=== PATIENT | female | born 1995 | race Caucasian/White ===

== ENCOUNTER 2019-03-17 10:59 | Inpatient (IN) ==
[~2019-03-17 10:59] MED LIST: Famotidine 20 MG/2 ML VIAL IVP PRN; Metoclopramide 10 MG/2 ML VIAL IVP PRN; Naloxone 0.4 MG/ML INJ IVP PRN; Ondansetron 4 MG/2 ML VIAL IVP PRN
[2019-03-17] MEDS ORDERED: Ringers Solution, Lactated 1,000 ML IVC SCH (11:00)
--- NOTE | 2019-03-17 11:04 | OB/GYN History & Physical ---
Date of Encounter: 03/17/19 Time of Encounter: 11:01 Assessment and Plan (1) 37 weeks gestation of Current visit: Yes Status: Acute admit at this time Dr. Mistry aware of patients assessment and POC (2) Spontaneous rupture of membranes Current visit: Yes Status: Acute awaiting records NPO History of Present Illness Chief complaint: Leaking fluid HPI: Ms. Wan is a 24 year old female at 37w3d presents to labor and delivery with complaints of leaking fluid through the night and a gush of fluid this morning. Patient denies any vaginal bleeding or contractions. Patient reports good movement. Patient receives care in [place]. We are currently waiting on records. Patient reports she is to have a "primary c/s at [facility] due to cysts on the baby's brain". Past Med Surg Social Fam HX - Past Medical History Source: patient Medical history: no medical history - Past Surgical History Additional surgical history: T&A - Social History Smoking Status: Never smoker Smokeless Tobacco Status: No Alcohol use: none Current living situation: Home - Independent Activity Level: Independent ambulation Recent Out of Country Travel Within the Last 8 Weeks: No Exposure or Possible Exposure to Illness During Travel: No Obstetrical History - Pregnancies : 1 Para: 0 Term: 0 : 0 Ab's: 0 Livin Medications and Allergies Guaifenesin [Mucinex] 600 mg PO BID #20 tab.er.12h 10/19/18 [Rx] RX: Acetaminophen [Pain Reliever] 1,000 mg PO TID PRN #100 tablet 10/19/18 [Rx] RX: Cromolyn Sodium Nasal [place] [NasalCrom] 1 spray NS TID #1 spray.pump 10/19/18 [Rx] Allergy/AdvReac Type Severity Reaction Status Date / Time No Known Allergies Allergy Verified 10/19/18 13:19 Review of System OB - Constitutional Constitutional ROS IM: no chills, no fever(s), no headache(s) - Cardiovascular Cardiovascular: no chest pain, no leg edema, no paroxysmal nocturnal dyspnea, no pedal edema, no rapid heart rate, no syncope - Respiratory Respiratory: no cough - Gastrointestinal Gastrointestinal: no abdominal pain, no constipation, no diarrhea, no heartburn, no nausea, no vomiting - Genitourinary Genitourinary: vaginal discharge (per HPI), no abnormal vaginal bleeding, no dysuria, no urinary frequency, no urinary urgency, no vaginal odor Exam - Constitutional Constitutional: well developed, well nourished, no acute distress, average body habitus - HEENT HEENT: Normocephaly, Mucus Membranes Moist - Neck Neck exam: full ROM, supple - Lungs Respiratory exam: CTAB - Cardiovascular Cardiovascular exam: RRR, +S1, +S2 - Abdomen Abdomen: Present: bowel sounds normal, gravid, non tender - Extremities Extremities exam: full ROM, normal capillary refill, normal inspection Deep Tendon Reflex Grade: 2+ Normal - Cervix Dilation: 1 Effacement: 70 Station: -2 - Uterus Uterus exam: Present: normal size, normal contour - Anus/Rectum Anus/Rectum: Present: normal perianal skin - Comments Comments: Speculum exam: + nitrazine, + pooling, + FERN FHR 135 bpm moderate variability +15x15 accels a 2 minute long decel noted with return to baseline with position change Dr. Mistry micropaleontologist and aware Results All other labs normal. - VTE Reasons for not Prescribing Prophylaxis: Treatment not Indicated - Low risk for VTE
--- NOTE | 2019-03-17 11:10 | Anesthesia Evaluation PreOp ---
Date of Encounter: 03/17/19 Time of Encounter: 10:59 - Past History Planned Operation: 37wks, G1 primary d/t cysts on brain? Cardiac History: Denies any Significant Hx Pulmonary History: Denies Any Significant HX SENIOR ELECTRICAL ENGINEER History: Denies Any Significant HX Other Medical History: Denies Any Significant HX Anesthesia History: No Prior Anesthetic Complications, Past Anesthesia (no family hx.) Alcohol Use: none Medications and Allergies Acetaminophen [Pain Reliever] 1,000 mg PO TID PRN #100 tablet 10/19/18 [Rx] Cromolyn Sodium Nasal [place] [NasalCrom] 1 spray NS TID #1 spray.pump 10/19/18 [Rx] Guaifenesin [Mucinex] 600 mg PO BID #20 tab.er.12h 10/19/18 [Rx] Allergy/AdvReac Type Severity Reaction Status Date / Time No Known Allergies Allergy Verified 10/19/18 13:19 Anesthesia Exam - HEENT Pupil (Motor): Pupils equal Mallampati: II Teeth: Normal Oral Opening: Greater than 3 - SENIOR ELECTRICAL ENGINEER LOC: Oriented SENIOR ELECTRICAL ENGINEER Motor: Normal RUE, Normal LUE, Normal RLE, Normal LLE, Normal Face SENIOR ELECTRICAL ENGINEER Sensory: Normal: RUE, LUE, RLE, LLE, Face - Cardiac Rhythm: Regular Murmur: None - Pulmonary Breath Sounds: bilateral Clear Respiratory Effort: Symmetrical Anesthesia Assess/Plan ASA Score: 2 Level of consciousness: Cooperative, Oriented, Tranquil Anesthetic Plan: General, Spinal, Epidural Regional Nerve Block Plan: Other (pt 37wk came in [facility] NPO 4hrs, currently bridget, patient says she was suppose to delivery at [facility] d/t baby with cyst on brain, OB team contacting [facility] ? plans at this time.) Monitoring Plan: Standard Monitors Recovery Plan: PACU
[2019-03-17 11:31] LABS: Basophils # 0.1 K/mcL (0.0-0.2); Basophils % 0.3 %; Eosinophils # 0.1 K/mcL (0.0-0.6); Eosinophils % 0.5 %; Hematocrit 39.7 % (35.3-44.9); Hemoglobin 12.4 g/dL (11.5-15.4); Immature Granulocytes % 0.8 % (0-4); Lymphocytes # 2.3 K/mcL (0.6-4.6); Lymphocytes % 15.6 %; Mean Corpuscular HGB Conc 31.2 g/dL (31.6-35.5); Mean Corpuscular Hemoglobin 26.4 pg (28.0-33.3); Mean Corpuscular Volume 84.5 fL (83.0-100.0); Monocytes # 0.7 K/mcL (0.0-1.3); Monocytes % 4.8 %; Neutrophils # 11.3 K/mcL (1.6-8.9); Platelet Count 219 K/mcL (140-400); Red Cell Distribution Width 13.7 % (11.5-14.5); White Blood Count 14.6 K/mcL (4.3-11.1)
[2019-03-17 11:36] LABS: Protein/Creatinine Ratio,Urine 0.16 mg/mg (0.00-0.20)
[2019-03-17 11:37] LABS: Amphetamine Screen,Urine Negative ng/mL (Cutoff=1000); Barbiturate Screen,Urine Negative ng/mL (Cutoff=200); Benzodiazepines Screen,Urine Negative ng/mL (Cutoff=200); Cannabinoid Screen,Urine Negative ng/mL (Cutoff = 50); Cocaine Screen,Urine Negative ng/mL (Cutoff= 300); Opiate Screen,Urine Negative ng/mL (Cutoff=300); Phencyclidine Screen,Urine Negative ng/mL (Cutoff=25)
[2019-03-17 11:51] LABS: Alanine Aminotransferase 9 Units/L (7-52); Aspartate Amino Transferase 10 Units/L (13-39); BUN/Creatinine Ratio 17 (6-26); Blood Urea Nitrogen 8 mg/dL (6-20); Lactate Dehydrogenase 128 Units/L (140-271); Uric Acid 5.7 mg/dL (2.3-7.6); eGFR For African Americans > 60 (> 60); eGFR For Non-African Americans > 60 (> 60)
--- NOTE | 2019-03-17 12:27 | Event Note ---
Date of Encounter: 03/17/19 Time of Encounter: 12:[address] Washington from [facility]. He agrees to accept patient for transfer. Dr. Washington was updated on SVE, EFM and TOCO along with current lab work results. Dr. Washington is familiar with case.
--- NOTE | 2019-03-17 12:29 | Discharge Summary ---
Date of Encounter: 03/17/19 Time of Encounter: 12:28 - Discharge Diagnosis (1) 37 weeks gestation of Priority: Primary Status: Acute (2) Spontaneous rupture of membranes Priority: Secondary Status: Acute - Discharge Medications Prescriptions: No Action Acetaminophen [Pain Reliever] 1,000 mg PO TID PRN #100 tablet PRN Reason: Pain Cromolyn Sodium Nasal [place] [NasalCrom] 1 spray NS TID #1 spray.pump Guaifenesin [Mucinex] 600 mg PO BID #20 tab.er.12h Home Medications: Acetaminophen [Pain Reliever] 1,000 mg PO TID PRN #100 tablet 10/19/18 [Rx] Cromolyn Sodium Nasal [place] [NasalCrom] 1 spray NS TID #1 spray.pump 10/19/18 [Rx] Guaifenesin [Mucinex] 600 mg PO BID #20 tab.er.12h 10/19/18 [Rx] Allergies/Adverse Reactions: Allergy/AdvReac Type Severity Reaction Status Date / Time No Known Allergies Allergy Verified 10/19/18 13:19 Data Procedures and tests throughout hospitalization: Laboratory Tests 03/17/19 03/17/19 03/17/19 10:30 10:30 11:10 WBC 14.6 H RBC 4.70 Hgb 12.4 Hct 39.7 MCV 84.5 MCH 26.4 L MCHC 31.2 L RDW 13.7 Plt Count 219 MPV 12.0 Immature Gran % 0.8 Seg Neutrophils % 78.0 Lymphocytes % 15.6 Monocytes % 4.8 Eosinophils % 0.5 Basophils % 0.3 Neutrophils # 11.3 H Lymphocytes # 2.3 Monocytes # 0.7 Eosinophils # 0.1 Basophils # 0.1 BUN Creatinine Est GFR ( Amer) Est GFR (Non-Af Amer) BUN/Creatinine Ratio Uric Acid AST ALT Lactate Dehydrogenase Urine Creatinine 110 Protein/Creatinin Ratio 0.16 Urine Total Protein 17 H Urine Opiates Screen Negative Ur Buprenorphine Scrn Negative Ur Barbiturates Screen Negative Ur Phencyclidine Scrn Negative Ur Amphetamines Screen Negative U Benzodiazepines Scrn Negative Urine Cocaine Screen Negative U Marijuana (THC) Screen Negative Ur Drug Screen Interp See Below 03/17/19 11:10 WBC RBC Hgb Hct MCV MCH MCHC RDW Plt Count MPV Immature Gran % Seg Neutrophils % Lymphocytes % Monocytes % Eosinophils % Basophils % Neutrophils # Lymphocytes # Monocytes # Eosinophils # Basophils # BUN 8 Creatinine 0.46 L Est GFR ( Amer) > 60 Est GFR (Non-Af Amer) > 60 BUN/Creatinine Ratio 17 Uric Acid 5.7 AST 10 L ALT 9 Lactate Dehydrogenase 128 L Urine Creatinine Protein/Creatinin Ratio Urine Total Protein Urine Opiates Screen Ur Buprenorphine Scrn Ur Barbiturates Screen Ur Phencyclidine Scrn Ur Amphetamines Screen U Benzodiazepines Scrn Urine Cocaine Screen U Marijuana (THC) Screen Ur Drug Screen Interp Labs on day of discharge: Labs from last 24 hours 03/17/19 03/17/19 03/17/19 11:10 11:10 10:30 WBC 14.6 H RBC 4.70 Hgb 12.4 Hct 39.7 MCV 84.5 MCH 26.4 L MCHC 31.2 L RDW 13.7 Plt Count 219 MPV 12.0 Immature Gran % 0.8 Seg Neutrophils % 78.0 Lymphocytes % 15.6 Monocytes % 4.8 Eosinophils % 0.5 Basophils % 0.3 Neutrophils # 11.3 H Lymphocytes # 2.3 Monocytes # 0.7 Eosinophils # 0.1 Basophils # 0.1 BUN 8 Creatinine 0.46 L Est GFR ( Amer) > 60 Est GFR (Non-Af Amer) > 60 BUN/Creatinine Ratio 17 Uric Acid 5.7 AST 10 L ALT 9 Lactate Dehydrogenase 128 L Urine Creatinine 110 Protein/Creatinin Ratio 0.16 Urine Total Protein 17 H Urine Opiates Screen Ur Buprenorphine Scrn Ur Barbiturates Screen Ur Phencyclidine Scrn Ur Amphetamines Screen U Benzodiazepines Scrn Urine Cocaine Screen U Marijuana (THC) Screen Ur Drug Screen Interp 03/17/19 10:30 WBC RBC Hgb Hct MCV MCH MCHC RDW Plt Count MPV Immature Gran % Seg Neutrophils % Lymphocytes % Monocytes % Eosinophils % Basophils % Neutrophils # Lymphocytes # Monocytes # Eosinophils # Basophils # BUN Creatinine Est GFR ( Amer) Est GFR (Non-Af Amer) BUN/Creatinine Ratio Uric Acid AST ALT Lactate Dehydrogenase Urine Creatinine Protein/Creatinin Ratio Urine Total Protein Urine Opiates Screen Negative Ur Buprenorphine Scrn Negative Ur Barbiturates Screen Negative Ur Phencyclidine Scrn Negative Ur Amphetamines Screen Negative U Benzodiazepines Scrn Negative Urine Cocaine Screen Negative U Marijuana (THC) Screen Negative Ur Drug Screen Interp See Below Date of admission: 03/17/19 09:49 Primary care physician: Brit Duarte Discharging clinician: Dorita Jeffrey Anticipated date of discharge: 03/17/19 - Patient Status Disposition: Transfer Critical Access Hosp Condition: Good Functional capacity at discharge: independent ambulation - Discharge Instructions Follow Up With: Brit Duarte [Primary Care Provider] - Hospital Course [employer]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
== END 2019-03-17 12:55 | disposition other institution (70) | DRG 833 ==
LOC: 1NENULAB
PROVIDERS: ADMIT Advanced Practice Midwife; ATTEND Advanced Practice Midwife